=== PATIENT | female | born 1965 | race Caucasian/White ===

== ENCOUNTER 2023-09-05 16:03 | Outpatient (REF) | payer SELFPAY ==
--- NOTE | 2023-09-06 09:26 | MHC.AU.HA3 ---
Hearing Instrument Follow-Up- Binaural Date of Visit: 09/05/23 Right Ear: Pipe, Model, Color, Serial Number: Oticon OPN 1 miniRITE-T SN: [id number] Supervisor Electrolytic Tinning Repair Warranty: 11/23/2020 Supervisor Electrolytic Tinning Loss and Damage Warranty: 11/23/2020 Battery Size: 312 Rn Bariatric/Slim Tube: 2/85 Earmold/Dome/CShell/SlimTip:8mm single solis dome (no retention tail) Type of Wax Guard: miniFit Dispensed By: [facility] Date of Fitting: Per OticonOctober 2017 Left Ear: Pipe, Model, Color, Serial Number: Oticon OPN 1 miniRITE-T SN: [id number] Supervisor Electrolytic Tinning Repair Warranty: 11/23/2020 Supervisor Electrolytic Tinning Loss and Damage Warranty: 11/23/2020 Battery Size: 312 Rn Bariatric/Slim Tube: 2/85 Earmold/Dome/CShell/SlimTip: 8mm single solis dome (no retention tail) Type of Wax Guard: miniFit Dispensed By: [facility]: [facility] Summary: Kinjal is transferring care from [facility]. She has a history of vertigo and sudden hearing loss in the left ear in 2011. She was evaluated at [facility], had no response to steroids, and unremarkable MRI. Since then, her hearing has continued to fluctuate, ultimately continuing to worsen in the left ear as well as the right ear. Her most recent evaluation in November 2022 at [facility] showed a significant change in hearing and hearing aids were reportedly reprogrammed accordingly. Kinjal reported that she only needs a cleaning today as domes are discolored, wax build up noted on end of receivers, and dust/debris in microphones. Cleaned hearing aids. Replaced domes and wax guards. Vacuumed microphones. Ran through dehumidifier. Listening check demonstrated hearing aids are amplifying clearly. Connected hearing aids to Genie to read settings; however, did not make adjustments, as Kinjal reported that she is overall happy with the sound quality at this time. *After appointment, called [facility] to check warranty information - Per director customer, hearing aids are assigned to a different patient. Looking back at records from [facility], report from August 2021 and August 2022, notes hearing aids are OPN S1; however, report from November 2022, notes hearing aids are OPN 1s (which are the hearing aids she had today). Will follow up with Kinjal about this at her next appointment. Recommendations: Hearing instrument follow-up or maintenance as needed. Please contact our clinic with any questions or concerns. Recommendations (Other): Annual hearing evaluation due to fluctuating hearing loss or sooner if change in hearing is suspected. Diagnosis Code(s): Primary Diagnosis: H90.3 Bilateral Sensorineural Hearing Loss Signature: Provider: Marine Kate, [facility]
== END 2023-09-05 16:04 | disposition home or self-care (01) ==
LOC: HO.HAP 16:03
PROVIDERS: PCP Pediatrics; Visit Provider Pediatrics
DX: Z46.1 Encounter for fitting and adjustment of hearing aid (principal); H90.3 Sensorineural hearing loss, bilateral
CPT/HCPCS: 92593; V5267

== ENCOUNTER 2024-03-25 15:55 | Outpatient (REF) | payer SELFPAY ==
--- NOTE | 2024-03-25 16:27 | MHC.AU.HA3 ---
Hearing Instrument Follow-Up- Binaural Date of Visit: 03/25/24 Right Ear: Make, Model, Color, Serial Number: Oticon OPN 1 miniRITE-T SN: [id number] Almond Cutting Machine Tender Repair Warranty: 11/23/2020 Almond Cutting Machine Tender Loss and Damage Warranty: 11/23/2020 Battery Size: 312 Pipe Fitter Supervisor Maintenance/Slim Tube: 2/85 Earmold/Dome/CShell/SlimTip:8mm single solis dome (no retention tail) Type of Wax Guard: miniFit Dispensed By: [facility] Date of Fitting: Per Oticon, October 2017 Left Ear: Make, Model, Color, Serial Number: Oticon OPN 1 miniRITE-T SN: [id number] Almond Cutting Machine Tender Repair Warranty: 11/23/2020 Almond Cutting Machine Tender Loss and Damage Warranty: 11/23/2020 Battery Size: 312 Pipe Fitter Supervisor Maintenance/Slim Tube: 2/85 Earmold/Dome/CShell/SlimTip: 8mm single solis dome (no retention tail) Type of Wax Guard: miniFit Dispensed By: [facility] Date of Fitting: Per [facility] 2017 Follow-Up Summary: Dome stuck in left ear since Sunday. Current 8mm single solis domes did not feel secure enough, has tried 10mm - too large/uncomfortable. Wanted to try open dome, ordered package online. Otoscopy revealed dome deep in left ear canal, appeared to be Phonak open dome. Kinjal tried to remove at home without success. Marine Saravia, attempted removal in office with forceps - Could not remove, too deep, ear canal already irritated. Recommended removal at PCP or urgent care office. Kinjal now knows domes are not interchangeable and she should be aware of residential leasing manager, style, and size of domes if ordering online. Recommendations: Hearing instrument follow-up or maintenance as needed. Please contact our clinic with any questions or concerns. Diagnosis Code(s): Primary Diagnosis: H90.3 Bilateral Sensorineural Hearing Loss Signature: Provider: Marine Kate, [facility]
== END 2024-03-25 15:56 | disposition home or self-care (01) ==
LOC: HO.HAP 15:55
PROVIDERS: Visit Provider Pediatrics
DX: Z13.89 Encounter for screening for other disorder (principal)

== ENCOUNTER 2024-07-22 07:59 | Outpatient (REF) | payer SELFPAY | END 2024-07-22 08:00 | disposition home or self-care (01) | LOC: HO.HAP 07:59 | PROVIDERS: Visit Provider Pediatrics | DX: Z46.1 Encounter for fitting and adjustment of hearing aid (principal); H90.3 Sensorineural hearing loss, bilateral | CPT/HCPCS: 92593 ==

== ENCOUNTER 2024-10-28 12:53 | Outpatient (REF) | payer OTHER, SELFPAY | END 2024-10-28 12:54 | disposition home or self-care (01) | LOC: HO.SH 12:53 | PROVIDERS: Visit Provider Pediatrics | DX: Z01.118 Encounter for examination of ears and hearing with other abnormal findings (principal); H90.3 Sensorineural hearing loss, bilateral | CPT/HCPCS: 92557; 92567 ==

== ENCOUNTER 2024-10-28 16:35 | Outpatient (REF) | payer SELFPAY ==
--- NOTE | 2024-10-29 13:03 | MHC.AU.HA1 ---
Hearing Aid Evaluation Date of Visit: 10/28/24 Historical Information: Description of Hearing: Moderate rising to within normal through 3kHz sloping back to moderate sensorineural hearing loss Ad. Moderate rising to mild and sloping back to moderate sensorineural hearing loss As. Current personal amplification information, if applicable: Oticon Opn 1 miniRITE T Summary: Long time hearing aid wearer interested in upgrading to new technology. Discussed options. Selected similar style- rechargeable, RITE. Kinjal would like to connect the hearing aids with her iPhone. Selected active level, no service plan. Expected reimbursement from [facility]. Hearing Aid Prescription: Based on the individual?s shared listening needs, communication environments, dexterity, desire for connectivity, and personal preferences, the following prescription for amplification has been made: Right ear: Make, Model, Color: Oticon Intent 2 chroma beige Battery Size: 312 Sand Sifter/Slim Tube: 2/85 Type of Earmold/Dome/CShell/SlimTip: 8mm double solis Left ear: Make, Model, Color: Oticon Intent 2 chroma beige Battery Size: Rechargeable Sand Sifter/Slim Tube: 2/85 Type of Earmold/Dome/CShell/SlimTip: 8mm double solis Accessories/Assistive Technology Recommended: Plan of Care: Patient wishes to purchase hearing aids as prescribed Action Taken/Action Needed: Medical Clearance to be requested from PCP/ENT Hearing Instrument Fitting to be scheduled when materials arrive Primary Diagnosis: H90.3 Bilateral Sensorineural Hearing Loss Signature: Provider: Marine Sanchez, CCC-A
== END 2024-10-28 16:36 | disposition home or self-care (01) ==
LOC: HO.HAP 16:35
PROVIDERS: Visit Provider Pediatrics
DX: Z46.1 Encounter for fitting and adjustment of hearing aid (principal); H90.3 Sensorineural hearing loss, bilateral
CPT/HCPCS: 92590

== ENCOUNTER 2024-11-27 12:39 | Outpatient (REF) | payer SELFPAY ==
--- NOTE | 2024-11-27 13:41 | MHC.AU.HA2 ---
Hearing Instrument Fitting- Adult- Binaural Date of Visit: 11/27/24 Hearing Instruments Dispensed: Right Ear: Make, Model, Color, Serial Number: Oticon Intent 2 chroma beige [id number] Rug Layer Repair Warranty: 12/06/2027 Rug Layer Loss and Damage Warranty: 12/06/2027 [facility] Service Plan: n/a Battery Size: 312 Glue Mill Operator/Slim Tube: no tail Earmold/Dome/CShell/SlimTip: 8mm double solis Type of Wax Guard: miniFit Left Ear: Make, Model, Color, Serial Number: Oticon Intent 2 chroma beige [id number] Rug Layer Repair Warranty: 12/06/2027 Rug Layer Loss and Damage Warranty: 12/06/2027 [facility] Service Plan: n/a Battery Size: Rechargeable Glue Mill Operator/Slim Tube: no tail Earmold/Dome/CShell/SlimTip: 8mm double solis Type of Wax Guard: miniFit Summary of Fitting: Fit with and oriented to binaural Oticon Intent 2 R HAs. Verified to NAL NL2 targets. Good subjective comfort and benefit reported. Demonstrated charging. Reviewed maintenance, precautions. Long time hearing aid user. Did not connect to phone, Kinjal reported she felt comfortable doing that herself as she had paired her old hearing aids. Provided itemized receipt for insurance reimbursement. Recommendations: Recommendations: A hearing instrument follow-up was scheduled. Diagnosis Code(s): Primary Diagnosis: H90.3 Bilateral Sensorineural Hearing Loss Signature: Provider: Marine Sanchez, [facility]
== END 2024-11-27 12:40 | disposition home or self-care (01) ==
LOC: HO.HAP 12:39
PROVIDERS: Visit Provider Pediatrics
DX: Z46.1 Encounter for fitting and adjustment of hearing aid (principal); H90.3 Sensorineural hearing loss, bilateral
CPT/HCPCS: V5261; V5299

== ENCOUNTER 2025-04-21 09:35 | Outpatient (REF) | payer SELFPAY ==
--- OUTSIDE RECORDS SUMMARY | 2011-05-01 | XMS_ITS | Encounter Summary ---
Author Organization [facility] Address [address] [email or web address] [facility] [address] [place] [address] Phone Care Team Providers Care Leg Assembler Name Role Phone Unavailable Primary Care Provider Unavailabl e Encounter Details Date Type Department Care Team (Late st Contact Info) Description 05/01/2011 Hospital Encounter [facility],Outside Imaging [address] [place] [address] System, Provider Not In, [facility] [address] [address] Social History Tobacco Use Types Packs/Day Years Used Date Smoking Tobacco: Never Smokeless Tobacco: Never Alcohol Use Standard Drinks/Week Comments Yes 0 (1 standard drink = 0.6 oz pur e alcohol) occasionally Education Answer Date Recorded Are you interested in more education? Not on nerissa e 10/06/2022 Are you concerned about learning? Not on file 10/06/2022 No 10/06/2022 No 10/06/2022 Digital Access Answer Date Recorded No 11/04/2022 No 11/04/2022 Reliable internet access at home? Not on file 11/04/2022 Device with a working camera? Not on file Intimate Partner Violence Answer Date R ecorded Are you denied basic needs s uch as food, clothing, or medical care? No 01/29/2025 In the past 12 months have y ou been in a relationship with a person who hurts, threatens, or tries to control you? No 01/29/2025 Are you denied basic needs s uch as food, clothing, or medical care? No 01/29/2025 In the past 12 months have y ou been in a relationship with a person who hurts, threatens, or tries to control you? No 01/29/2025 Comments No Sex and Gender Information Value Date Recorded Sex Assigned at Not on file Legal Sex Female 2:02 PM EDT Gender Identity Not on file Sexual Orientation Not on file documented as of this encounter Plan of Treatment Not on file documented as of this encounter Procedures Procedure Name Priority Date/Time Associated Diagnosis Comments BI MAMMOGRAM OUTSIDE (NO INTERPRETATION) Routine 05/01/2011 12:00 AM EST documented in this encounter Results * Mammogram Outside (No Interpretation) (05/01/2011 12:00 AM EST) Narrative SYSTEMGENERATED, DOCUMENTATION - 02/26/2018 1:05 PM EDT This study is for PACS storage only and not for interpretation. us Provider Not In System PhD IMG OUTSIDE IMAGING W /OUT INTERPRETATION Final Result documented in this encounter Visit Diagnoses Not on filedocumented in this encounter Additional Source Comments The information contained in this document represents components of the legal health record. It is not the complete legal health record.[facility]
--- OUTSIDE RECORDS SUMMARY | 2012-09-15 23:00 | XMS_ITS | Encounter Summary ---
Author Organization [facility] Address [address] [employer] [facility] [address] [place] [address] Phone Care Team Providers Care Immigration Investigator Name Role Phone Unavailable Primary Care Provider Unavailabl e Encounter Details Date Type Department Care Team (Late st Contact Info) Description 09/16/2012 Hospital Encounter [facility],Outside Imaging [address] [place] [address] System, Provider Not In, [facility] [address] [address] Social History Tobacco Use Types Packs/Day Years [...] Comments BI MAMMOGRAM OUTSIDE (NO INTERPRETATION) Routine 09/16/2012 12:00 AM EDT documented in this encounter Results * Mammogram Outside (No Interpretation) (09/16/2012 12:00 AM EDT) Narrative SYSTEMGENERATED, DOCUMENTATION - 02/26/2018 1:01 PM EDT This study is for PACS storage only and not for interpretation. us Provider Not In System PhD IMG OUTSIDE IMAGING W /OUT INTERPRETATION Final Result documented in this encounter Visit Diagnoses Not on filedocumented in this encounter Additional Source Comments The information contained in this document represents components of the legal health record. It is not the complete legal health record.[facility]
--- OUTSIDE RECORDS SUMMARY | 2025-04-21 10:38 | XMS_ITS | Encounter Summary ---
Author Organization [facility] Address [address] [facility] [address] [place] [address] Phone Care Team Providers Care Production Team Member Name Role Phone Maria G Gimenez NP Primary Care Provider [phone] Augustina Espana MD Primary Care Provid er Encounter Details Date Type Department Care Team (Latest Contact Info) Description 05/27/2021 Transcribe Orders [facility] [address] [place] [address] Anna Mckenzie PA-C [address] [place] [address] [email or web address] Constipation, unspecified constipation type (Primary Dx); Colon cancer screening Social History Tobacco Use Types Packs/Day Years Used Date Smoking Tobacco: Never Smokeless Tobacco: Never Alcohol Use Standard Drinks/Week Comments No 0 (1 standard drink = 0.6 oz pur e alcohol) Comments No Sex and Gender Information Value Date Recorded Sex Assigned at Not on file Legal Sex Female 2:02 PM EDT Gender Identity Not on file Sexual Orientation Not on file documented as of this encounter Plan of Treatment Not on file documented as of this encounter Results * TSH (05/27/2021 2:48 PM EST) TSH 1.78 0.27 - 4.20 uIU/mL [facility] Blood 05/27/2021 2:48 PM EST 05/27/2021 3:13 PM EST Anna Mckenzie PA-C LAB BLOOD BKR ORDERABLES Final Result [address] [address] * C-Reactive Protein (05/27/2021 2:48 PM EST) C REACTIVE PROTEIN <3.0 0.0 - 4.0 mg/L [facility] Blood 05/27/2021 2:48 PM EST 05/27/2021 3:13 PM EST Anna Mckenzie PA-C LAB BLOOD BKR ORDERABLES Final Result Performing Organization Address [facility] Co de Phone Number [address] [address] * (ABNORMAL) Comprehensive metabolic panel (05/27/2021 2:48 PM EST) SODIUM 137 133 - 146 mmol/L [facility] POTASSIUM 3.9 3.3 - 5.1 mmol/L [facility] CHLORIDE 103 96 - 108 mmol/L [facility] CO2 25 21 - 35 mmol/L [facility] BUN 22(H) 6 - 19 mg/dL [facility] CREATININE 0.70 0.5 - 1.5 mg/dL [facility] GLUCOSE 99 70 - 99 mg/dL [facility] ALBUMIN 4.7 3.9 - 4.8 g/dL [facility] TOTAL PROTEIN 6.8 6.5 - 8.0 g/dL [facility] CALCIUM 9.3 8.4 - 10.3 mg/dL [facility] ALKALINE PHOSPHATASE 64 39 - 117 U/L [facility] TOTAL BILIRUBIN 0.7 0.0 - 1.2 mg/dL [facility] AST 16 0 - 37 U/L [facility] ALT 11 0 - 40 U/L [facility] GLOBULIN 2.1 1 - 4.8 g/dL [facility] EGFR 103 >59 mL/min/1.7 3m2 [facility] Comment:Estimated glomerular filtration rate calculated using the CKD-EPI refit equation. ANION GAP 13 10 - 20 mmol/L [facility] Blood 05/27/2021 2:48 PM EST 05/27/2021 3:13 PM EST us Anna Mckenzie PA-C LAB BLOOD BKR ORDERABLES Final Result [address] [address] * CBC (05/27/2021 2:48 PM EST) WBC 4.77 4.00 - 11.00 K/uL [facility] RBC 3.86 3.72 - 5.30 M/uL [facility] HGB 12.5 10.6 - 15.5 g/dL [facility] HCT 35.8 32.0 - 45.0 % [facility] PLT 226 140 - 430 K/uL [facility] MCV 92.7 78.0 - 97.0 fL [facility] MCH 32.4 25.0 - 33.0 pg [facility] MCHC 34.9 32.0 - 36.0 g/dL [facility] RDW 12.0 11.0 - 16.0 % [facility] MPV 9.9 8.4 - 12.8 fl [facility] NRBC 0.00 0 /100 WBCs [facility] ABSOLUTE NRBC 0.00 0 K/uL [facility] Blood 05/27/2021 2:48 PM EST 05/27/2021 3:13 PM EST us Anna Mckenzie PA-C LAB BLOOD BKR ORDERABLES Final Result [address] [address] * Immunoglobulin A (05/27/2021 2:48 PM EST) IgA 120 70 - 400 mg/dL [facility] Blood 05/27/2021 2:48 PM EST 05/27/2021 3:13 PM EST us Anna RODRIGUEZ-C LAB BLOOD BKR ORDERABLES Final Result [facility] [address] [place] [address] * Tissue transglutaminase IgA (05/27/2021 2:48 PM EST) TTG IGA ANTIBODY <1.2 <4.0 (Negative) U/mL [facility] Blood 05/27/2021 2:48 PM EST 05/27/2021 3:13 PM EST us Anna RODRIGUEZ-Kellie LAB BLOOD BKR ORDERABLES Final Result [facility] LAB MED[facility] [address] [place] [address] documented in this encounter Visit Diagnoses Diagnosis Constipation, unspecified constipation type- Primary Colon cancer screening Special screening for malignant neoplasms, colon documented in this encounter Care Teams Production Team Member Relationship Specialty Start Date End Date Maria G Gimenez NP PCP - General 09/12/18 03/25/24 [facility] [address] [address] PCP - General Internal Medicine 03/26/24 documented as of this encounter Additional Source Comments The information contained in this document represents components of the legal health record. It is not the complete legal health record.[facility]
--- OUTSIDE RECORDS SUMMARY | 2025-04-21 10:38 | XMS_ITS | Encounter Summary ---
Author Organization [facility] Address [address] [facility] [address] [place] [address] Phone Care Team Providers Care Armature Winder Name Role Phone Brianna Sanchez NP Primary Care Provider [phone] Maria G Gimenez NP Primary Care Provider [phone] Augustina Espana MD Primary Care Provid er Encounter Details Date Type Department Care Team (Late st Contact Info) Description 05/22/2017 Procedure Pass [facility] Endoscopy Admitting Dept Virtual Department [address] [place] [address] Social History Tobacco Use Types Packs/Day Years Used Date Smoking Tobacco: Never Smokeless Tobacco: Never Alcohol Use Standard Drinks/Week Comments No 0 (1 standard drink = 0.6 oz pur e alcohol) Comments Unknown Sex and Gender Information Value Date Recorded Sex Assigned at Not on file Legal Sex Female 2:02 PM EDT Gender Identity Not on file Sexual Orientation Not on file documented as of this encounter Plan of Treatment Not on file documented as of this encounter Visit Diagnoses Not on filedocumented in this encounter Care Teams Armature Winder Relationship Specialty Start Date End Date Brianna Sanchez NP [address] [place] [address] [email or web address] PCP - General Family Medicine 05/22/17 09/11/18 Maria G Gimenez NP [address] [place] [address] PCP - General 09/12/18 03/25/24 Augustina Espana MD [address] [address] PCP - General Internal Medicine 03/26/24 documented as of this encounter Additional Source Comments The information contained in this document represents components of the legal health record. It is not the complete legal health record.[facility]
--- OUTSIDE RECORDS SUMMARY | 2025-04-21 10:38 | XMS_ITS | Encounter Summary ---
Author Organization [facility] Address [address] [facility] [address] [place] [address] Phone Care Team Providers Care Curtain Supervisor Name Role Phone Maria G Gimenez NP Primary Care Provider [phone] Augustina Espana MD Primary Care Provid er Encounter Details Date Type Department Care Team (Late st Contact Info) Description 04/13/2021 Procedure Pass [facility], [address] [address] Social History Tobacco Use Types Packs/Day Years Used Date Smoking Tobacco: Never Smokeless Tobacco: Never Alcohol Use Standard Drinks/Week Comments Yes 2 (1 standard drink = 0.6 oz pur [...] on filedocumented in this encounter Care Teams Curtain Supervisor Relationship Specialty Start Date End Date Maria G Gimenez NP PCP - General 09/12/18 03/25/24 Augustina Espana MD [address] [address] PCP - General Internal Medicine 03/26/24 documented as of this encounter Additional Source Comments The information contained in this document represents components of the legal health record. It is not the complete legal health record.[facility]
--- OUTSIDE RECORDS SUMMARY | 2025-04-21 10:38 | XMS_ITS | Encounter Summary ---
Author Organization [facility] Address [address] [place] [address] Phone Care Team Providers Care It Application Administrator Name Role Phone Maria G Gimenez NP Primary Care Provider [phone] Augustina Espana MD Primary Care Provid er Encounter Details Date Type Department Care Team (Late st Contact Info) Description 02/22/2024 Procedure Pass [facility] Endoscopy Admitting Dept Virtual Department [address] [place] [address] Social History Tobacco Use Types Packs/Day Years Used Date Smoking Tobacco: Never Smokeless Tobacco: Never Alcohol Use Standard Drinks/Week Comments Not Currently 14 (1 standard drink = 0.6 oz pu re alcohol) 2 per day Education Answer Date Recorded Are you interested [...] as food, clothing, or medical care? No 01/09/2024 In the past 12 months have y ou been in a relationship with a person who hurts, threatens, or tries to control you? No 01/09/2024 Are you denied basic needs s uch as food, clothing, or medical care? No 01/09/2024 In the past 12 months have y ou been in a relationship with a person who hurts, threatens, or tries to control you? No 01/09/2024 Comments No Sex and Gender Information Value Date Recorded Sex Assigned at Not on file Legal Sex Female 2:02 PM EDT Gender Identity Not on file Sexual Orientation Not on file documented as of this encounter Plan of Treatment Not on file documented as of this encounter Visit Diagnoses Not on filedocumented in this encounter Care Teams It Application Administrator Relationship Specialty Start Date End Date Maria G Gimenez NP PCP - General 09/12/18 03/25/24 Augustina Espana MD [address] [address] PCP - General Internal Medicine 03/26/24 documented as of this encounter Additional Source Comments The information contained in this document represents components of the legal health record. It is not the complete legal health record.[facility]
--- OUTSIDE RECORDS SUMMARY | 2025-04-21 10:38 | XMS_ITS | Encounter Summary ---
Author Organization [facility] Address [address] [employer] [facility] [address] [place] [address] Phone Care Team Providers Care Timing Adjuster Name Role Phone Yasmeen Sancheza Rosio TAXI PROPRIETOR Primary Care Provider [phone] Maria G Gimenez TAXI PROPRIETOR Primary Care Provider [phone] Augustina Espana MD Primary Care Provid er Encounter Details Date Type Department Care Team (Late st Contact Info) Description 02/26/2018 Ancillary Orders [facility],Outside Imaging [address] [place], [place] [id number] System, Provider Not In, [place] [address] Social History Tobacco Use Types Packs/Day Years [...] documented as of this encounter Results * Mammogram Outside (No Interpretation) (11/05/2014 12:00 AM EDT) Narrative SYSTEMGENERATED, DOCUMENTATION - 02/26/2018 1:02 PM EDT This study is for PACS storage only and not for interpretation. us Provider Not In System PhD IMG OUTSIDE IMAGING W /OUT INTERPRETATION Final Result documented in this encounter Visit Diagnoses Not on filedocumented in this encounter Care Teams Timing Adjuster Relationship Specialty Start Date End Date Brianna Sanchez NP [address] [place] [address] [email or web address] PCP - General Family Medicine 05/22/17 09/11/18 Maria G Gimenez NP [address] [place] [address] PCP - General 09/12/18 03/25/24 Augustina Espana MD [address] [address] PCP - General Internal Medicine 03/26/24 documented as of this encounter Additional Source Comments The information contained in this document represents components of the legal health record. It is not the complete legal health record.[facility]
--- OUTSIDE RECORDS SUMMARY | 2025-04-21 10:38 | XMS_ITS | Encounter Summary ---
Author Organization [facility] Address [address] [facility] [address] [place] [address] Phone Care Team Providers Care Gardening Supervisor Name Role Phone Maria G Gimenez NP Primary Care Provider [phone] Augustina Espana MD Primary Care Provid er Encounter Details Date Type Department Care Team (Late st Contact Info) Description 06/27/2022 Procedure Pass , [address] [address] Social History Tobacco Use Types Packs/Day Years Used Date Smoking Tobacco: Never Smokeless Tobacco: Never Alcohol Use Standard Drinks/Week Comments Yes 6 (1 standard drink = 0.6 oz pur [...] on filedocumented in this encounter Care Teams Gardening Supervisor Relationship Specialty Start Date End Date Maria G Gimenez NP PCP - General 09/12/18 03/25/24 Augustina Espana MD [address] [address] PCP - General Internal Medicine 03/26/24 documented as of this encounter Additional Source Comments The information contained in this document represents components of the legal health record. It is not the complete legal health record.[facility]
--- OUTSIDE RECORDS SUMMARY | 2025-04-21 10:38 | XMS_ITS | Encounter Summary ---
Author Organization [facility] Address [address] [employer] [facility] [address] [place] [address] Phone Care Team Providers Care Heat Engineering Teacher Name Role Phone Brianna Sanchez BARREL BUNG REMOVER AND DUMPER Primary Care Provider Maria G Gimenez BARREL BUNG REMOVER AND DUMPER Primary Care Provider [phone] Augustina Espana MD Primary Care Provid er Encounter Details Date Type Department Care Team (Late st Contact Info) Description 02/26/2018 Ancillary Orders [facility],Outside Imaging [address] [place], [place] [id number] System, Provider [place] In, [place] [address] Social History Tobacco Use Types Packs/Day Years [...] encounter Results * Mammogram Outside (No Interpretation) (12/29/2016 12:00 AM EDT) Narrative SYSTEMGENERATED, DOCUMENTATION - 02/26/2018 1:04 PM EDT This study is for PACS storage only and not for interpretation. us Provider Not In System PhD IMG OUTSIDE IMAGING W /OUT INTERPRETATION Final Result documented in this encounter Visit Diagnoses Not on filedocumented in this encounter Care Teams Heat Engineering Teacher Relationship Specialty Start Date End Date Brianna Sanchez NP [address] [place] [address] [email or web address] PCP - General Family Medicine 05/22/17 09/11/18 Maria G Gimenez NP [address] [place] [address] PCP - General 09/12/18 03/25/24 Augustina Espana MD [address] [address] PCP - General Internal Medicine 03/26/24 documented as of this encounter Additional Source Comments The information contained in this document represents components of the legal health record. It is not the complete legal health record.[facility]
--- OUTSIDE RECORDS SUMMARY | 2025-04-21 10:38 | XMS_ITS | Encounter Summary ---
Author Organization [facility] Address [address] [facility] [address] [place] [address] Phone Care Team Providers Care Locomotive Oiler Name Role Phone Maria G Gimenez NP Primary Care Provider [phone] Augustina Espana MD Primary Care Provid er Encounter Details Date Type Department Care Team (Late st Contact Info) Description 08/19/2021 Procedure Pass [facility] Endoscopy Admitting Dept Virtual Department [address] [place] [address] Social History Tobacco Use Types Packs/Day Years [...] on filedocumented in this encounter Care Teams Locomotive Oiler Relationship Specialty Start Date End Date Maria G Gimenez NP PCP - General 09/12/18 03/25/24 Augustina Espana MD [address] [address] PCP - General Internal Medicine 03/26/24 documented as of this encounter Additional Source Comments The information contained in this document represents components of the legal health record. It is not the complete legal health record.[facility]
--- OUTSIDE RECORDS SUMMARY | 2025-04-21 10:38 | XMS_ITS | Encounter Summary ---
Author Organization [facility] Address [address] [facility] [address] [place] [address] Phone Care Team Providers Care Marble Chip Terrazzo Worker Name Role Phone Maria G Gimenez NP Primary Care Provider [phone] Augustina Espana MD Primary Care Provid er Encounter Details Date Type Department Care Team (Latest Contact Info) Description 04/13/2021 Transcribe Orders Virtual Department 30 [place] [address] Maria G Gimenez, FRANK [address] [place] [address] Breast screening (Primary Dx) Social History Tobacco Use Types Packs/Day Years [...] documented as of this encounter Results * BI MAMMOGRAM SCREENING WITH TOMOSYNTHESIS WITH CAD (BILATERAL) (09/23/2021 9:23 AM EDT) Anatomical Region Laterality Modality Breast Left, Breast Right, Breast Bilateral Bila teral Mammography 09/23/2021 10:1 6 AM EDT Impressions 09/23/2021 10:17 AM EDT No mammographic evidence of malignancy. Recommend routine annual surveillance. BI-RADS CATEGORY: 2 - Benign finding. DENSITY: The breast tissue is heterogeneously dense, which could obscure a lesion on mammography. Narrative 09/23/2021 10:17 AM EDT 56-year-old female with no current breast symptoms. Comparison made to previous on 07/01/2020 and as far back as 11/05/2014. Interpretation made in conjunction with computer-aided detection and tomosynthesis. The breasts are heterogeneously dense, which may obscure small masses. New benign right breast macrocalcification. There are no suspicious masses, areas of architectural distortion, or suspicious clusters of microcalcifications. Procedure Note Vinicio Dobbs MD - 09/23/2021 56-year-old female with no current breast symptoms. Comparison made toprevious on 07/01/2020 and as far back as 11/05/2014. Interpretation madein conjunction with computer-aided detection and tomosynthesis. The breasts are heterogeneously dense, which may obscure small masses. Newbenign right breast macrocalcification. There are no suspicious masses, areas of architectural distortion, orsuspicious clusters of microcalcifications. IMPRESSION: No mammographic evidence of malignancy. Recommend routine annualsurveillance. BI-RADS CATEGORY: 2 - Benign finding. DENSITY: The breast tissue is heterogeneously dense, which could obscurea lesion on mammography. us Maria G Gimenez NP IMG MG EXAMS Final Res ult documented in this encounter Visit Diagnoses Diagnosis Breast screening- Primary Breast screening, unspecified Breast screening Breast screening, unspecified documented in this encounter Care Teams Marble Chip Terrazzo Worker Relationship Specialty Start Date End Date Maria G Gimenez NP PCP - General 09/12/18 03/25/24 Augustina Espana MD [address] [address] PCP - General Internal Medicine 03/26/24 documented as of this encounter Additional Source Comments The information contained in this document represents components of the legal health record. It is not the complete legal health record.[facility]
--- OUTSIDE RECORDS SUMMARY | 2025-04-21 10:38 | XMS_ITS | Encounter Summary ---
Author Organization [facility] Address [address] [employer] [facility] [address] [place] [address] Phone Care Team Providers Care Admissions Assistant Name Role Phone Brianna Sanchez SEMICONDUCTOR PACKAGES SEALER Primary Care Provider [phone] Maria G Gimenez SEMICONDUCTOR PACKAGES SEALER Primary Care Provider [phone] Augustina Espana MD Primary Care Provid er Encounter Details Date Type Department Care Team (Late st Contact Info) Description 02/26/2018 Ancillary Orders [facility],Outside Imaging [address] [place], [place] [id number] System, Provider [place] In, [place] [address] Social History Tobacco Use Types Packs/Day Years [...] on filedocumented in this encounter Care Teams Admissions Assistant Relationship Specialty Start Date End Date Brianna Sanchez NP [address] [place] [address] [email or web address] PCP - General Family Medicine 05/22/17 09/11/18 Maria G Gimenez NP [address] [place] [address] PCP - General 09/12/18 03/25/24 Augustina Espana MD [address] [address] PCP - General Internal Medicine 03/26/24 documented as of this encounter Additional Source Comments The information contained in this document represents components of the legal health record. It is not the complete legal health record.[facility]
--- OUTSIDE RECORDS SUMMARY | 2025-04-21 10:38 | XMS_ITS | Encounter Summary ---
Author Organization [facility] Address [address] [facility] [address] [place] [address] Phone Care Team Providers Care Powder Core Tester Name Role Phone DanielBrianna Rosio MOTOR BLOCK MECHANIC Primary Care Provider [phone] Maria G Gimenez MOTOR BLOCK MECHANIC Primary Care Provider [phone] Augustina Espana MD Primary Care Provid er Encounter Details Date Type Department Care Team (Late st Contact Info) Description 02/20/2018 Ancillary Orders Virtual Department [address] [place] [address] Bharath Edwards DO [address] [place] [address] [email or web address] Breast screening Social History Tobacco Use Types Packs/Day [...] MAMMOGRAM SCREENING WITH TOMOSYNTHESIS WITH CAD (BILATERAL) (04/19/2018 2:58 PM EST) Anatomical Region Laterality Modality Breast Left, Breast Right, Breast Bilateral Bila teral Mammography 04/20/2018 1:21 PM EST Impressions 04/20/2018 1:23 PM EST No mammographic evidence of malignancy. BI-RADS CATEGORY: 1 - Negative. DENSITY: The breast tissue is extremely dense, an appearance which could obscure a lesion on mammography. POS - [id number] Narrative 04/20/2018 1:23 PM EST Standard digital full-field 2-D C view and two-plane tomographic imaging was performed and compared with multiple prior studies, most recently an outside study dated 12/29/2016, with utilization of computer-aided detection. The breast parenchyma is extremely dense, limiting mammographic sensitivity. The stromal markings are essentially unchanged in overall appearance and distribution. No dominant spiculated mass, suspicious clustered microcalcifications, or focal zone of pathologic skin thickening or retraction are noted to have arisen in the interim. Procedure Note Brenda Solomon MD - 04/20/2018 Standard digital full-field 2-D C view and two-plane tomographic imagingwas performed and compared with multiple prior studies, most recently anoutside study dated 12/29/2016, with utilization of computer-aideddetection. The breast parenchyma is extremely dense, limiting mammographicsensitivity. The stromal markings are essentially unchanged in overallappearance and distribution. No dominant spiculated mass, suspiciousclustered microcalcifications, or focal zone of pathologic skin thickeningor retraction are noted to have arisen in the interim. IMPRESSION: No mammographic evidence of malignancy. BI-RADS CATEGORY: 1 - Negative. DENSITY: The breast tissue is extremely dense, an appearance which couldobscure a lesion on mammography. POS - CDHMAM2 Bharath Edwards DO IM MG EXAMS Final Result documented in this encounter Visit Diagnoses Diagnosis Breast screening Breast screening, unspecified Breast screening Breast screening, unspecified documented in this encounter Care Teams Powder Core Tester Relationship Specialty Start Date End Date Brianna Sanchez NP [address] [place] [address] [email or web address] PCP - General Family Medicine 05/22/17 09/11/18 Maria G Gimenez NP [address] [place] [address] PCP - General 09/12/18 03/25/24 Augustina Espana MD [address] [address] PCP - General Internal Medicine 03/26/24 documented as of this encounter Additional Source Comments The information contained in this document represents components of the legal health record. It is not the complete legal health record.[facility]
--- OUTSIDE RECORDS SUMMARY | 2025-04-21 10:38 | XMS_ITS | Encounter Summary ---
Author Organization [facility] Address [address] [place] [address] Phone Care Team Providers Care Hand Ii Thermal Cutter Name Role Phone Augustina Espana MD Primary Care Provid er Encounter Details Date Type Department Care Team ([facility] st Contact Info) Description 02/05/2025 Procedure Pass [facility] Endoscopy Admitting Dept Virtual Department [address] [place] [address] Social History Tobacco Use Types Packs/Day Years [...] on filedocumented in this encounter Care Teams Hand Ii Thermal Cutter Relationship Specialty Start Date End Date Augustina Espana MD [address] [address] PCP - General Internal Medicine 03/26/24 documented as of this encounter Additional Source Comments The information contained in this document represents components of the legal health record. It is not the complete legal health record.[facility]
--- OUTSIDE RECORDS SUMMARY | 2025-04-21 10:39 | XMS_ITS | Encounter Summary ---
Author Organization [facility] Address [address] [facility] [address] [place] [address] Phone Care Team Providers Care Alarm Signal Operator Name Role Phone Maria G Gimenez NP Primary Care Provider [phone] Augustina Espana MD Primary Care Provid er Encounter Details Date Type Department Care Team (Late st Contact Info) Description 05/11/2020 Ancillary Orders Virtual Department [address] [place] [address] Maria G Gimenez NP [address] [place] [address] Breast screening Social History Tobacco Use Types [...] MAMMOGRAM SCREENING WITH TOMOSYNTHESIS WITH CAD (BILATERAL) (07/01/2020 8:46 AM EST) Anatomical Region Laterality Modality Breast Left, Breast Right, Breast Bilateral Bila teral Mammography 07/01/2020 12:3 6 PM EST Impressions 07/01/2020 12:42 PM EST No mammographic signs of malignancy. Annual screening is recommended. BI-RADS CATEGORY: 2 - Benign finding. DENSITY: The breast tissue is heterogeneously dense, which could obscure a lesion on mammography. Narrative 07/01/2020 12:42 PM EST Bilateral mammography is performed in conjunction with computed aided detection. 3-D tomography along with 2-D C view imaging was also performed. Comparison made to previous dated as far back as 09/16/2012 and as recent as 04/21/2019. No suspicious masses, areas of architectural distortion or suspicious microcalcifications. An asymmetry in the posterior upper right breast on the MLO view is stable from prior mammograms and consistent with superimposed fibroglandular tissue. Procedure Note Catrachito Dickens MD - 07/01/2020 Bilateral mammography is performed in conjunction with computed aideddetection. 3-D tomography along with 2-D C view imaging was alsoperformed. Comparison made to previous dated as far back as 09/16/2012 andas recent as 04/21/2019. No suspicious masses, areas of architectural distortion or suspiciousmicrocalcifications. An asymmetry in the posterior upper right breast onthe MLO view is stable from prior mammograms and consistent withsuperimposed fibroglandular tissue. IMPRESSION: No mammographic signs of malignancy. Annual screening is recommended. BI-RADS CATEGORY: 2 - Benign finding. DENSITY: The breast tissue is heterogeneously dense, which could obscurea lesion on mammography. Maria G Gimenez NP IMG MG EXAMS Final Res ult documented in this encounter Visit Diagnoses Diagnosis Breast screening Breast screening, unspecified Breast screening Breast screening, unspecified documented in this encounter Care Teams Alarm Signal Operator Relationship Specialty Start Date End Date Maria G Gimenez NP PCP - General 09/12/18 03/25/[address] [facility] [address] [address] PCP - General Internal Medicine 03/26/24 documented as of this encounter Additional Source Comments The information contained in this document represents components of the legal health record. It is not the complete legal health record.[facility]
--- OUTSIDE RECORDS SUMMARY | 2025-04-21 10:39 | XMS_ITS | Encounter Summary ---
Author Organization [facility] Address [address] [employer] [facility] [address] [place] [address] Phone Care Team Providers Care Screen And Cyclone Repairer Name Role Phone Brianna Sanchez SIDEHAND Primary Care Provider [phone] Maria G Gimeenz SIDEHAND Primary Care Provider [phone] Augustina Espana MD Primary Care Provid er Encounter Details Date Type Department Care Team (Late st Contact Info) Description 02/26/2018 Ancillary Orders [facility],Outside Imaging [address] [place], [place] [id number] System, Provider [place] In, [place] [address] Social History Tobacco Use Types Packs/Day Years [...] on filedocumented in this encounter Care Teams Screen And Cyclone Repairer Relationship Specialty Start Date End Date Brianna Sanchez NP [address] [place] [address] [email or web address] PCP - General Family Medicine 05/22/17 09/11/18 Maria G Gimenez NP [address] [place] [address] PCP - General 09/12/18 03/25/24 Augustina Espana MD [address] [address] PCP - General Internal Medicine 03/26/24 documented as of this encounter Additional Source Comments The information contained in this document represents components of the legal health record. It is not the complete legal health record.[facility]
--- OUTSIDE RECORDS SUMMARY | 2025-04-21 10:39 | XMS_ITS | Encounter Summary ---
Author Organization [facility] Address [address] [facility] [address] [place] [address] Phone Care Team Providers Care Screen And Cyclone Repairer Name Role Phone Maria G Gimenez NP Primary Care Provider [phone] Augustina Espana MD Primary Care Provid er Encounter Details Date Type Department Care Team (Late st Contact Info) Description 06/29/2023 Procedure Pass [facility] [address] [place] [address] Social History Tobacco Use Types Packs/Day Years Used Date Smoking Tobacco: Never Smokeless Tobacco: Never Alcohol Use Standard Drinks/Week Comments Yes 6 (1 standard drink = 0.6 oz pur e alcohol) Education Answer Date Recorded Are you interested in more education? Not on nerissa e 10/06/2022 Are you concerned about learning? Not on file 10/06/2022 No 10/06/2022 No 10/06/2022 Digital Access Answer Date Recorded No 11/04/2022 No 11/04/2022 Reliable internet access at home? Not on file 11/04/2022 Device with a working camera? Not on file Comments No Sex and Gender Information Value [...] Repairer Relationship Specialty Start Date End Date Maria G Gimenez NP PCP - General 09/12/18 03/25/24 Augustina Espana MD [address] [address] PCP - General Internal Medicine 03/26/24 documented as of this encounter Additional Source Comments The information contained in this document represents components of the legal health record. It is not the complete legal health record.[facility]
--- OUTSIDE RECORDS SUMMARY | 2025-04-21 10:39 | XMS_ITS | Encounter Summary ---
Author Organization [facility] Address [address] [place] [address] Phone Care Team Providers Care Freelance Art Director Name Role Phone Maria G Gimenez NP Primary Care Provider [phone] Augustina Espana MD Primary Care Provid er Encounter Details Date Type Department Care Team (Late st Contact Info) Description 01/09/2024 Procedure Pass [facility] Endoscopy Admitting Dept Virtual Department [address] [place] [address] Social History Tobacco Use Types Packs/Day Years [...] on filedocumented in this encounter Care Teams Freelance Art Director Relationship Specialty Start Date End Date Maria G Gimenez NP PCP - General 09/12/18 03/25/24 Augustina Espana MD [address] [address] PCP - General Internal Medicine 03/26/24 documented as of this encounter Additional Source Comments The information contained in this document represents components of the legal health record. It is not the complete legal health record.[facility]
--- OUTSIDE RECORDS SUMMARY | 2025-04-21 10:39 | XMS_ITS | Encounter Summary ---
Author Organization [facility] Address [address] [facility] [address] [place] [address] Phone Care Team Providers Care Manager Imaging Name Role Phone Yasmeen Sancheza Rosio AUDIOLOGY TECHNICIAN Primary Care Provider [phone] Maria G Gimenez AUDIOLOGY TECHNICIAN Primary Care Provider [phone] Augustina Espana MD Primary Care Provid er Encounter Details Date Type Department Care Team (Late st Contact Info) Description 02/26/2018 Ancillary Orders [facility],Outside Imaging [address] [place], [place] [phone] System, Provider Not In, [place] [address] Social History Tobacco Use Types Packs/Day Years [...] encounter Results * Mammogram Outside (No Interpretation) (11/17/2015 12:00 AM EDT) Narrative SYSTEMGENERATED, DOCUMENTATION - 02/26/2018 1:03 PM EDT This study is for PACS storage only and not for interpretation. us Provider Not In System PhD IMG OUTSIDE IMAGING W /OUT INTERPRETATION Final Result documented in this encounter Visit Diagnoses Not on filedocumented in this encounter Care Teams Manager Imaging Relationship Specialty Start Date End Date Brianna Sanchez NP [address] [place] [address] [email or web address] PCP - General Family Medicine 05/22/17 09/11/18 Maria G Gimenez NP [address] [place] [address] PCP - General 09/12/18 03/25/24 Augustina Espana MD [address] [address] PCP - General Internal Medicine 03/26/24 documented as of this encounter Additional Source Comments The information contained in this document represents components of the legal health record. It is not the complete legal health record.[facility]
--- OUTSIDE RECORDS SUMMARY | 2025-04-21 10:39 | XMS_ITS | Clinical Summary ---
Author Organization [facility] Address [address] [facility] [address] [place] [address] Phone Care Team Providers Care Cost Accounting Analyst Name Role Phone Augustina Mckeon MD Primary Care Provid er Allergies Active Allergy Reactions Criticality Noted Date Comments Oxycodone-Acetaminophen 05/14/2017 fainting Medications venlafaxine (EFFEXOR-XR) 150 MG 24 hr capsule Take 150 mg by mouth daily. Active ascorbate Xo-ssjaetzq-ywc (VITAMIN C) 1,000 mg PwEP Take 1 tablet by mouth daily. Active omeprazole (PRILOSEC) 20 MG capsule 12/12/2023 Active fexofenadine (RAYRAY) 180 MG tablet Take 180 mg by mouth daily. Active Encounters Date Type Department Care Team Description 02/05/2025 9:00 AM EDT - 02/05/2025 9:15 AM EDT Surgery [facility] End[facility] Admitting Dept Virtual Department [address] [place] [address] Brenda Hanson MD ESOPHAGOGASTRODUODENOSCOPY 02/05/2025 8:51 AM EDT Anesthesia Event [facility] Admitting Dept Virtual Department [address] [place] [address] Braden Sinha MD, GINI 02/05/2025 7:56 AM EDT - 02/05/2025 10:00 AM EDT Hospital Encounter [facility] Admitting Dept Virtual Department [address] [place] [address] Brenda Hanson MD Discharge Disposition: Home or Self Care 02/05/2025 Procedure Pass [facility] Endoscopy Admitting Dept Virtual Department [address] [place] [address] 01/29/2025 8:30 AM EDT Pre-Admission Testing Pre Procedure Evaluation [address] [place] [address] Brenda Hanson MD from Last 3 Months Immunizations Immunization Administration Dates Next Due DTaP 03/01/2022 Hepatitis B Adult 01/24/2024,02/09/2022 INFLUENZA, SPLIT VIRUS, TRIV ALENT W/ PRESERVATIVE IM 04/15/2018,04/16/2017,03/06/2016 Influenza Quadrivalent Adjuv anted Preservative Free IM 03/09/2022,03/31/2021 Influenza Quadrivalent MDCK Preservative Free IM 04/16/2017 Influenza Quadrivalent Preservative Free IM 02/2019,03/16/2018 Influenza Quadrivalent w/ Preservative IM 2022 Influenza, whole 03/31/2021,03/19/2019 Family History Medical History Relation Comments COPD Father Heart disease Mother Relation Status Comments Father Mother Social History Tobacco Use Types Packs/Day Years [...] on file Sexual Orientation Not on file Last Filed Vital Signs Vital Sign Reading Time Taken Comments Blood Pressure 95/63 02/05/2025 9:15 AM EDT Pulse 77 02/05/2025 9:15 AM EDT Temperature 35.8 C (96.4 F) 02/05/2025 9:06 AM EDT Respiratory Rate 13 02/05/2025 9:15 AM EDT Oxygen Saturation 97% 02/05/2025 9:15 AM EDT Inhaled Oxygen Concentration - - Weight 64.4 kg (142 lb) 01/29/2025 9:40 AM EDT Height 157.5 cm (5' 2 ) 01/29/2025 9:40 AM EDT Body Mass Index 25.97 01/29/2025 9:40 AM EDT Plan of Treatment Health Maintenance Due Date Last Done Comments LIPID PANEL 1965 DEPRESSION SCREENING 1979 HEPATITIS C SCREENING 1985 HIV ONE-TIME SCREENING (18-65 YEARS) 1985 COLOGUARD 2012 FIT TEST 2012 FOBT 2012 SIGMOIDOSCOPY 2012 VIRTUAL COLONOSCOPY 2012 PNEUMOCOCCAL VACCINES (50+ years) (1 of 1 - PCV) 2017 SCREENING FOR DIABETES 05/27/2024 05/27/2021 INFLUENZA VACCINE (#1) 2025 , 03/16/2023, 03/09/2022, Additional history exists COVID-19 VACCINE ( season) 2025 03/31/2024, 04/10/2023, 03/01/2022, Additional history exists MAMMOGRAM 12/10/2025 12/11/2023, 04/01/2023, 09/23/2021, Additional history exists COLONOSCOPY 08/20/2031 08/19/2021, 05/22/2017 COLORECTAL CANCER SCREENING 08/20/2031 Adult Td,Tdap Booster 03/01/2032 03/01/2022, 016 RSV VACCINE (1 - 1-dose 75+ series) 2042 ZOSTER VACCINES Completed 04/25/2019, 02/20/2019 SMOKING STATUS SCREENING (Once After 26 Yrs) Completed 02/05/2025 HEPATITIS A VACCINES Aged Out No long er eligible based on patient's age to complete this topic HIB VACCINES Aged Out No longer eligi ble based on patient's age to complete this topic IPV VACCINES Aged Out No longer eligi ble based on patient's age to complete this topic MENINGOCOCCAL VACCINES (ACWY) Aged Out No longer eligible based on patient's age to complete this topic MENINGOCOCCAL VACCINES (B) Aged Out N o longer eligible based on patient's age to complete this topic Medical Devices Not on file Procedures Procedure Name Priority Date/Time Associated Diagnosis Comments OUTSIDE PATHOLOGY 03/09/2025 MN EGD ABLATE TUMOR POLYP/LESION W/DILATION& WIRE 02/05/2025 8:47 AM EDT Albert's esophagus without dysplasia Special Needs Direct; wears hearing aids MN EDG TRANSORAL BIOPSY SINGLE/MULTIPLE 02/05/2025 8:47 AM EDT Albert's esophagus without dysplasia Special Needs Direct; wears hearing aids MN ESOPHAGOGASTRODUODENOSCOP Y TRANSORAL DIAGNOSTIC 02/05/2025 8:47 AM EDT Albert's esophagus without dysplasia Special Needs Direct; wears hearing aids ENDOSCOPY PROCEDURE 02/05/2025 8:42 AM EDT ANATOMIC PATHOLOGY Routine 02/05/2025 12:00 AM EDT BI MAMMOGRAM SCREENING WITH TOMOSYNTHESIS WITH CAD (BILATERAL) Routine 12/11/2023 3:58 PM EDT Visit for screening mammogram ENDOSCOPY, COLON 08/19/2021 11:42 AM EST from Last 3 Months or Most Recently Relevant to Health Maintenance Results * Outside Pathology (03/09/2025) us Scanning Interface Provider PATHOLOGY ORDERABLES Final Result * ENDOSCOPY PROCEDURE (02/05/2025 8:42 AM EDT) Narrative Transcriptions Brenda Hanson MD - 02/05/2025 8:42 AM EDT [facility] Patient Name: Kinjal Rogelio Attending MD:: BRENDA HANSON MD, Procedure Date: 02/05/2025 8:42 AM Date of : 1965 Age: 59 Admit Type: Outpatient Gender: Female Room: [place] [address] Referring MD: AUGUSTINA MCKEON MD Exam Type: Upper GI endoscopy Indications: Surveillance for malignancy due to personal historyof Albert's esophagus, s/p Fundoplication Medications: Propofol per Anesthesia Procedure: Informed consent was obtained from the patientafter discussion of the indications, limitations, alternatives, benefits, and risks of the procedure. Risks specifically discussed include but are not limited to medication reactions, missed lesions, bleeding, perforation, or the need for emergent surgery. Throughout the procedure, the patient's blood pressure, pulse, end-tidal CO2, and oxygensaturations were monitored continuously. The Endoscope was introduced through the mouth, and advanced to the second part of duodenum. The upperGI endoscopy was accomplished without difficulty. The patient tolerated the procedure well. Complications: No immediate complications. Estimated blood loss:None. Findings: There were esophageal mucosal changes consistentwith a single tongue of short-segment Albert'sesophagus present at the gastroesophageal junction. Themaximum longitudinal extent of these mucosal changes was 1cm in length. Imaging was performed using white lightand narrow band imaging to visualize the mucosa.Biopsies were taken with a cold forceps for histology with increased but self-limited oozing of blood. The exam of the esophagus was otherwise normal. Evidence of a fundoplication was found at the gastroesophageal junction. The wrap appearedtight. The exam of the stomach was otherwise normal. The examined duodenum was normal. Impression: - Esophageal mucosal changes consistent with short-segment Albert's esophagus. Biopsied. - A fundoplication was found. The wrap appearstight. - Normal examined duodenum. Recommendation: - Await pathology results. Pt is on no acid suppression with goodrelief of sxs. Will send for Tissue Cypher for risk assessment if Barrettsis confirmed. BRENDA HANSON MD 02/05/2025 9:06:09 AM This report has been signed electronically. Number of Addenda: 0 Note Initiated On: 02/05/2025 8:42 AM Procedure Code(s): --- Professional --- 98866, Esophagogastroduodenoscopy, flexible, transoral; with biopsy, single or multiple --- Technical --- 11187, Esophagogastroduodenoscopy, flexible, transoral; with biopsy, single or multiple Diagnosis Code(s): --- Professional --- K22.70, Albert's esophagus without dysplasia Z98.890, Other specified postprocedural states --- Technical --- K22.70, Albert's esophagus without dysplasia Z98.890, Other specified postprocedural states CPT copyright 2021 [employer]. All rights reserved. The codes documented in this report are preliminary and upon dater assembler reviewmay be revised to meet current compliance requirements. Procedure Date: 02/05/2025 8:42:[address] [place] [address] Augustina Mckeon MD GI PROCEDURE ORDERAB LES Final Result * Anatomic Pathology (Non-MGB) (02/05/2025 12:00 AM EDT) Report [address] [address] Community Health Specialist: Masoud Rocha MD Surgical Pathology Report FINAL PATHOLOGIC DIAGNOSIS: GASTROESOPHAGEAL JUNCTION, BIOPSY: Squamocolumnar junction with focal intestinal metaplasia (Albert's esophagus). Negative for dysplasia. Electronically Signed Out By Masoud Rocha MD By his/her signature above, the pathologist listed as making the Final Diagnosis certifies that he/she has personally reviewed this case and confirmed or corrected the diagnosis. CLINICAL HISTORY Albert's esophagus without dysplasia [K22.70] SPECIMENS SUBMITTED: A: GASTROESOPHAGEAL JUNCTION, BIOPSY GROSS DESCRIPTION GASTROESOPHAGEAL JUNCTION, BIOPSY: Received in formalin are 4 irregular escobar-pink soft tissue fragments varying size from 0.3 x 0.2 x 0.1 cm up to 0.5 x 0.3 x 0.2 cm which are submitted in toto in a single cassette labeled A1. Grossed by: ISIAH Loera PA([facility]) [id number] 02/05/2025 Grossing Staff: [id number] Patient Name: KINJAL MERCADO : 1965 (Age: 59) Sex: F Institution: [facility] Location: [facility] Date of Operation: 02/05/2025 Date of Reported: 02/06/2025 12:44 Results To: Brenda Hanson MD, AB Augustina Mckeon MD [facility] Clinical History Albert's esophagus without dysplasia [K22.70] [facility] Final Diagnosis GASTROESOPHAGEAL JUNCTION, BIOPSY: Squamocolumnar junction with focal intestinal metaplasia (Albert's esophagus).Negative for dysplasia. [facility] Gross Description GASTROESOPHAGEAL JUNCTION, BIOPSY: Received in formalin are 4 irregular escobar-pink soft tissue fragments varying size from 0.3 x 0.2 x 0.1 cm up to 0.5 x 0.3 x 0.2 cm which are submitted in toto in a single cassette labeled A1.Grossed by: ISIAH Loera PA([facility]) [facility] Conversion Type (Gastroesophageal Junction) 02/05/2025 02/05/2025 11:21 AM EDT us Brenda Hanson MD LAB PATHOLOGY ORDERABLES E dited Result - Final [address] [address] * BI MAMMOGRAM SCREENING WITH TOMOSYNTHESIS WITH CAD (BILATERAL) (12/11/2023 3:58 PM EDT) Anatomical Region Laterality Modality Breast Left, Breast Right, Breast Bilateral Bila teral Mammography 12/12/2023 12:4 4 PM EDT Impressions 12/12/2023 12:46 PM EDT No mammographic evidence of malignancy in either breast. Annual screening mammography is recommended. BI-RADS 1 NEGATIVE The patient will be notified of the results and recommendations. Narrative 12/12/2023 12:46 PM EDT BI MAMMOGRAM SCREENING WITH TOMOSYNTHESIS WITH CAD (BILATERAL) Additional patient information: Screening. COMPARISON: Comparison is made with relevant prior imaging. Breast composition: The breast tissue is heterogeneously dense which may obscure small masses. FINDINGS: No abnormal masses, suspicious calcifications, or other significant findings are identified mammographically in either breast. Procedure Note Fabiola Castillo MD - 12/12/2023 BI MAMMOGRAM SCREENING WITH TOMOSYNTHESIS WITH CAD (BILATERAL) Additional patient information: Screening. COMPARISON: Comparison is made with relevant prior imaging. Breast composition: The breast tissue is heterogeneously dense which mayobscure small masses. FINDINGS: No abnormal masses, suspicious calcifications, or other significantfindings are identified mammographically in either breast. IMPRESSION: No mammographic evidence of malignancy in either breast. Annual screening mammography is recommended. BI-RADS 1 NEGATIVE The patient will be notified of the results and recommendations. us Maria G Gimenez WORKFORCE ADVISOR IMG MG EXAMS Final Res ult * ENDOSCOPY, COLON (08/19/2021 11:42 AM EST) Narrative Transcriptions Brenda Hanson MD - 08/19/2021 11:42 AM EST Patient Name: Kinjal Rogelio Attending MD:: BRENDA HANSON MD Procedure Date: 08/19/2021 11:42 AM Date of : 1965 Age: 56 Admit Type: Outpatient Gender: Female Room: [place] [address] Referring MD: Maria G Gimenez Exam Type: Colonoscopy Indications: Screening for colorectal malignant neoplasm, Last colonoscopy: May 2017 Medications: Propofol per Anesthesia Procedure: Informed consent was obtained from the patientafter discussion of the indications, limitations, alternatives, benefits, and risks of the procedure. Risks specifically discussed include but are not limited to medication reactions, missed lesions, bleeding, perforation, or the need for emergent surgery. Throughout the procedure, the patient's blood pressure, pulse, end-tidal CO2, and oxygensaturations were monitored continuously. The Olympus adult variable colonoscope [id number] #6 was introduced through the anus and advanced to the terminal ileum, with identification of theappendiceal orifice and IC valve. The terminal ileum, ileocecal valve, appendiceal orifice, and rectum were photographed. The colonoscopy was somewhatdifficult due to a tortuous colon. Successful completion ofthe procedure was aided by applying abdominal pressure. The patient tolerated the procedure well. Thequality of the bowel preparation was adequate. The bowel preparation used was PEG in Gatoraide via splitdose instruction. Complications: No immediate complications. Estimated blood loss:None. Findings: The perianal and digital rectal examinations were normal. Pertinent negatives include no palpablerectal lesions. Internal hemorrhoids were found duringretroflexion. The hemorrhoids were small. The hepatic flexure was significantly tortuous. The exam was otherwise without abnormality. The terminal ileum appeared normal. Retroflexion in the right colon was performed. Impression: - Internal hemorrhoids. - Tortuous colon. - The examination was otherwise normal. - The examined portion of the ileum was normal. - No specimens collected. Recommendation: - Repeat colonoscopy in 10 years for screening purposes. BRENDA HANSON MD 08/19/2021 12:18:57 PM This report has been signed electronically. Number of Addenda: 0 Note Initiated On: 08/19/2021 11:42 AM Procedure Code(s): --- Professional --- 05904, Colonoscopy, flexible; diagnostic, including collection of specimen(s) by brushing or washing, when performed (separateprocedure) --- Technical --- 74202, Colonoscopy, flexible; diagnostic, including collection of specimen(s) by brushing or washing, when performed (separateprocedure) Diagnosis Code(s): --- Professional --- Z12.11, Encounter for screening for malignantneoplasm of colon K64.8, Other hemorrhoids Q43.8, Other specified congenital malformations of intestine --- Technical --- Z12.11, Encounter for screening for malignantneoplasm of colon K64.8, Other hemorrhoids Q43.8, Other specified congenital malformations of intestine CPT copyright 2020 [employer]. All rights reserved. The codes documented in this report are preliminary and upon dater assembler reviewmay be revised to meet current compliance requirements. Procedure Date: 08/19/2021 11:42:[address] [place] [address] Maria G Gimenez NP GI PROCEDURE ORDERABLES F inal Result from Last 3 Months or Most Recently Relevant to Health Maintenance [place] [address] [place] [address] [place] [address] [place] [address] [place] [address] [place] [address] [place] [address] [place] [place] [address] [place] [place] [address] CHOICE [facility] CHOICE Care Teams Cost Accounting Analyst Relationship Specialty Start Date End Date Augustina Mckeon MD [address] [address] PCP - General Internal Medicine 03/26/24 Additional Source Comments The information contained in this document represents components of the legal health record. It is not the complete legal health record.[facility]
--- OUTSIDE RECORDS SUMMARY | 2025-04-21 10:39 | XMS_ITS | Encounter Summary ---
Author Organization [facility] Address [address] [place] [address] Phone Care Team Providers Care Contact Representative Name Role Phone Maria G Gimenez NP Primary Care Provider [phone] Augustina Epsana MD Primary Care Provid er Encounter Details Date Type Department Care Team (Late st Contact Info) Description 02/21/2024 Procedure Pass [facility] Endoscopy Admitting Dept Virtual Department [address] [place] [address] Social History Tobacco Use Types Packs/Day Years [...] on filedocumented in this encounter Care Teams Contact Representative Relationship Specialty Start Date End Date Maria G Gimenez NP PCP - General 09/12/18 03/25/24 Augustina Espana MD [address] [address] PCP - General Internal Medicine 03/26/24 documented as of this encounter Additional Source Comments The information contained in this document represents components of the legal health record. It is not the complete legal health record.[facility]
--- OUTSIDE RECORDS SUMMARY | 2025-04-21 10:39 | XMS_ITS | Encounter Summary ---
Author Organization [facility] Address [address] [facility] [address] [place] [address] Phone Care Team Providers Care Wardrobe Mistress Name Role Phone Maria G Gimenez NP Primary Care Provider [phone] Augustina Espana MD Primary Care Provid er Encounter Details Date Type Department Care Team (Late st Contact Info) Description 01/24/2019 Ancillary Orders Virtual Department [address] [place] [address] Maria G Gimenez NP [address] [place] [address] Breast screening Social History Tobacco Use Types [...] MAMMOGRAM SCREENING WITH TOMOSYNTHESIS WITH CAD (BILATERAL) (04/21/2019 9:29 AM EST) Anatomical Region Laterality Modality Breast Left, Breast Right, Breast Bilateral Bila teral Mammography 04/21/2019 4:41 PM EST Impressions 04/21/2019 4:44 PM EST BILATERAL BREASTS: Negative, no evidence of malignancy. Normal interval follow- up is recommended in 12 months. Bi-RADS: BI-RADS CATEGORY: 1 - Negative. DENSITY: The breast tissue is extremely dense, an appearance which could obscure a lesion on mammography. POS - CD[facility]AMA Narrative 04/21/2019 4:44 PM EST STUDY: Bilateral screening mammography with tomosynthesis and CAD TECHNIQUE: Bilateral full-field digital screening mammography is obtained and read in conjunction with computer-aided detection. Tomosynthesis as well as 2-D C view imaging were obtained. COMPARISON: Comparison made to multiple prior, most recent April 19, 2018, and most remote September 162012. BREAST COMPOSITION: The breasts are extremely dense, which lowers the sensitivity of mammography. BILATERAL BREASTS: No significant masses, calcifications or other abnormalities are seen. Procedure Note Main Arciniega MD - 04/21/2019 STUDY: Bilateral screening mammography with tomosynthesis and CAD TECHNIQUE: Bilateral full-field digital screening mammography is obtainedand read in conjunction with computer-aided detection. Tomosynthesis aswell as 2-D C view imaging were obtained. COMPARISON: Comparison made to multiple prior, most recent April, and most remote September 162012. BREAST COMPOSITION: The breasts are extremely dense, which lowers thesensitivity of mammography. BILATERAL BREASTS: No significant masses, calcifications or otherabnormalities are seen. IMPRESSION: BILATERAL BREASTS: Negative, no evidence of malignancy. Normal intervalfollow-up is recommended in 12 months. Bi-RADS: BI-RADS CATEGORY: 1 - Negative. DENSITY: The breast tissue is extremely dense, an appearance which couldobscure a lesion on mammography. POS - CDHMAMA Maria G Gimenez NP IMG MG EXAMS Final Res ult documented in this encounter Visit Diagnoses Diagnosis Breast screening Breast screening, unspecified Breast screening Breast screening, unspecified documented in this encounter Care Teams Wardrobe Mistress Relationship Specialty Start Date End Date Maria G Gimenez NP PCP - General 09/12/18 03/25/24 [facility] [address] [address] PCP - General Internal Medicine 03/26/24 documented as of this encounter Additional Source Comments The information contained in this document represents components of the legal health record. It is not the complete legal health record.[facility]
--- OUTSIDE RECORDS SUMMARY | 2025-04-21 10:39 | XMS_ITS | Encounter Summary ---
Author Organization [facility] Address [address] [facility] [address] [place] [address] Phone Care Team Providers Care Tester Compressed Gases Name Role Phone Maria G Gimenez NP Primary Care Provider [phone] Augustina Espana MD Primary Care Provid er Encounter Details Date Type Department Care Team (Late st Contact Info) Description 05/11/2020 Procedure Pass [facility], [address] [address] Social History Tobacco Use Types Packs/Day Years [...] on filedocumented in this encounter Care Teams Tester Compressed Gases Relationship Specialty Start Date End Date Maria G Gimenez NP PCP - General 09/12/18 03/25/24 Augustina Espana MD [address] [address] PCP - General Internal Medicine 03/26/24 documented as of this encounter Additional Source Comments The information contained in this document represents components of the legal health record. It is not the complete legal health record.[facility]
== END 2025-04-21 09:36 | disposition home or self-care (01) ==
LOC: HO.HAP 09:35
PROVIDERS: Visit Provider Pediatrics
DX: Z46.1 Encounter for fitting and adjustment of hearing aid (principal); H90.3 Sensorineural hearing loss, bilateral
CPT/HCPCS: 92593